=== PATIENT | female | born 2000 | race Caucasian/White ===

== ENCOUNTER 2019-07-26 21:45 | Emergency (ER) | payer OTHER ==
[~2019-07-26] VITALS: Ht 165.1 cm; Wt 97.5 kg
[2019-07-26] MEDS ORDERED: HUMALOG100 UNIT/2 SUBQ (21:58)
[2019-07-26] MEDS ORDERED: LONG ACTING INSULIN (22:00)
[2019-07-26] MEDS ORDERED: TOPAMAX100 MG PO (22:01)
[2019-07-26] MEDS ORDERED: LIPITOR10 MG PO (22:01)
[2019-07-26 22:15] LABS: ABSOLUTE EOSINOPHILS 0.1 thou/uL (0.0-0.7); ABSOLUTE LYMPHOCYTES 4.6 thou/uL (0.8-5.3); ABSOLUTE MONOCYTES 0.5 thou/uL (0.0-1.2); ABSOLUTE NEUTROPHILS 5.4 thou/uL (1.6-8.1); BASOPHILS 0.4 %; EOSINOPHILS 0.6 %; HEMATOCRIT 39.5 % (37.0-47.0); HEMOGLOBIN 13.8 gm/dL (12.0-15.0); MCH 30.5 pg (26.0-34.0); MCV 87.1 fL (80.0-100.0); MPV 7.5 fl. (7.2-11.1); NUCLEATED RBCS 0 /100WBC; PLATELET COUNT* 481 thou/uL (150-400); RBC 4.53 mil/uL (4.20-5.00); WBC 10.7 thou/uL (4.0-11.0)
[2019-07-26 22:22] LABS: BE 5.6 mmol/L (-2 to +3); PCO2 VENOUS 40.3 mmHg (41.0-51.0); PO2 VENOUS 148.2 mmHg (35.0-45.0)
[2019-07-26 22:25] LABS: POTASSIUM 2.7 mmol/L (3.5-5.1)
[2019-07-26 22:42] LABS: INFLUENZA A ANTIGEN Negative (Negative); INFLUENZA B ANTIGEN Negative (Negative)
[2019-07-26 23:19] LABS: URINE BILIRUBIN NEGATIVE (Negative); URINE BLOOD NEGATIVE (Negative); URINE CLARITY CLEAR; URINE COLOR YELLOW; URINE GLUCOSE-RANDOM 3+ (Negative); URINE KETONES TRACE (Negative); URINE LEUKOCYTES-REFLEX NEGATIVE (Negative); URINE NITRITE-REFLEX NEGATIVE (Negative); URINE PROTEIN NEGATIVE (Negative); URINE SPECIFIC GRAVITY >= 1.030 (1.005-1.030); URINE UROBILINOGEN 0.2 E.U./dl (0.2-1.0)
[2019-07-26 23:50] LABS: AMP/METHAMP POSITIVE (Negative); BARBITURATES Negative (Negative); BENZODIAZEPINES Negative (Negative); COCAINE Negative (Negative); METHADONE Negative (Negative); OPIATES Negative (Negative); PCP Negative (Negative); THC POSITIVE (Negative)
[2019-07-27 06:20] VITALS: BP 110/60
--- NOTE | 2019-07-27 11:18 | EKG ---
[place] [address] ELECTROCARDIOGRAM REPORT Name: LYNNETTE GARRETT Room: [facility]#: [id number] Admission: 07/26/19 Attend Phys: Discharge: 07/27/19 Date of : 89 Date of Service: 07/26/19 2323 Report #: [id number] THIS REPORT FOR: cc: FAM - No family physician/PCP FAM - No family physician/PCP Oscar Turner MD [facility] ~ THIS REPORT FOR: //name// [facility] ED Test Date: 2019-07-26 Test Time: 23:23:33 Pat Name: LYNNETTE GARRETT Department: Room: Gender: F Retail District Manager: EMMETT : 2000 Requested By: Ezio Wood Order Number: [id number] MD: Oscar Turner Measurements Intervals [place] Rate: 104 P: 58 SC: 144 QRS: 28 QRSD: 84 T: 30 QT: 331 QTc: 436 Interpretive Statements sinus rhythm with sinus arrhythmia No previous ECG available for comparison Electronically Signed On 07-27-2019 11:17:54 ONCOLOGY NURSE by Oscar Turner [email or web address] <ELECTRONICALLY SIGNED> By: Oscar Turner MD, [facility] 07/27/19 1117 2323 2323 Oscar Turner MD, [facility] /EPI
== END 2019-07-27 06:24 | disposition home or self-care (01) ==
LOC: M.ERS 21:45
PROVIDERS: Family Medicine; Nurse Practitioner Psychiatric/Mental Health
DX: F19.10 Other psychoactive substance abuse, uncomplicated (principal); E10.9 Type 1 diabetes mellitus without complications; R11.2 Nausea with vomiting, unspecified; Z79.899 Other long term (current) drug therapy